=== PATIENT | female | born 2000 | race Caucasian/White ===

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

== ENCOUNTER 2022-06-03 19:36 | Emergency (ER) | payer MEDICAID ==
[~2022-06-03] VITALS: Ht 154.9 cm; Wt 77.1 kg
[~2022-06-03 19:36] MED LIST: BENZ-301 PO; IBUP-2213 PO
[2022-06-03 20:10] VITALS: BP 124/79
--- NOTE | 2022-06-03 20:10 | NUR ---
TO LOBBY A/W BED AMBULATORY
--- NOTE | 2022-06-03 21:25 | NUR ---
PT TO BED 06.
--- NOTE | 2022-06-03 21:38 | NUR ---
Dr. Musa examining patient.
--- NOTE | 2022-06-03 21:55 | NUR ---
Ultrasound at bedside.
[2022-06-03 22:02] LABS: APPEARANCE,URINE CLEAR (CLEAR); BILIRUBIN,URINE NEGATIVE (NEGATIVE); BLOOD, URINE NEGATIVE (NEGATIVE); COLOR,URINE YELLOW (YELLOW); LEUKOCYTE ESTERASE ,URINE NEGATIVE (NEGATIVE); NITRITE, URINE NEGATIVE (NEGATIVE); UGLUCOSE NEGATIVE (NEGATIVE)
[2022-06-03 23:53] VITALS: BP 124/79
--- NOTE | 2022-06-03 23:53 | NUR ---
Patient discharged with v/s stable. Written and verbal after care instructions given and explained. Patient verbalized understanding. Ambulatory with steady gait. All questions addressed prior to discharge. Advised to follow up with PMD.
== END 2022-06-03 23:53 | disposition home or self-care (01) ==
LOC: MED 19:36
DX: O26.892 Other specified pregnancy related conditions, second trimester (principal); R10.30 Lower abdominal pain, unspecified; Z79.899 Other long term (current) drug therapy; Z79.1 Long term (current) use of non-steroidal anti-inflammatories (NSAID); V89.2XXA Person injured in unspecified motor-vehicle accident, traffic, initial encounter; Y93.89 Activity, other specified; Y92.410 Unspecified street and highway as the place of occurrence of the external cause; Y99.8 Other external cause status
CPT/HCPCS: 76805; 81003; 99284; Q0092